=== PATIENT | female | born 1940 | race Caucasian/White ===

== ENCOUNTER 2018-07-04 02:50 | Inpatient (IN) ==
--- NOTE | 2018-06-20 08:27 | EKG Report ---
Test Performed on : 06/20/2018 08:19:52 AM Test Reason : JOINT CAMP Blood Pressure : / mmHG Vent. Rate : 080 BPM Atrial Rate : 080 BPM P-R Int : 202 ms QRS Dur : 084 ms QT Int : 374 ms P-R-T Axes : 050 -07 036 degrees QTc Int : 431 ms Normal sinus rhythm. Possible Left atrial enlargement Borderline ECG When compared with ECG of 29-APR-2007 08:28, [place] interval has decreased Confirmed by Betsy FARNSWORTH, Alton Tate ([id number]) on 06/21/2018 7:19:16 AM
[2018-06-20 08:30] LABS: URINE SOURCE CLEAN CATCH
[2018-06-20 08:49] LABS: BASO# 0.05 X1000 (0.0-0.2); BASO% 0.7 % (0.0-0.8); EOS# 0.08 X1000 (0.0-0.7); EOS% 1.1 % (0.0-10.0); HEMOGLOBIN 13.2 g/dL (12.0-16.0); LYMPH# 1.97 X1000 (1.2-3.4); LYMPH% 26.1 % (20.5-51.1); MCH 30.1 PG (27-31); MCHC 32.2 g/dL (33-37); MCV 93.6 FL (81-99); MONO% 9.3 % (1.7-9.3); MPV 10.3 FL (7.4-10.4); NEUT# 4.74 X1000 (1.4-6.5); NEUT% 62.8 % (42.2-75.2); PLT 375 X1000 (130-400); RBC 4.38 XMIL (4.2-5.4); RDW 13.6 % (11.5-14.5); WBC 7.54 X1000 (4.8-10.8)
[2018-06-20 08:51] LABS: BILIRUBIN URINE NEGATIVE (NEGATIVE); BLOOD URINE NEGATIVE (NEGATIVE); COLOR STRAW; GLUCOSE URINE NEGATIVE (NEGATIVE); KETONE URINE NEGATIVE (NEGATIVE); LEUKOCYTES URINE NEGATIVE (NEGATIVE); NITRITE URINE NEGATIVE (NEGATIVE); PH URINE 5.5; PROTEIN URINE NEGATIVE (NEGATIVE); TURBIDITY URINE CLEAR (CLEAR); UROBILINOGEN URINE NORMAL (NORMAL)
[2018-06-20 08:55] LABS: UR EPITHELIAL CELLS <10 /HPF (<10); URINE BACTERIA NEGATIVE /HPF; URINE RBC <10 /HPF (<10); URINE WBC <10 /HPF (<10)
[2018-06-20 09:06] LABS: INR 0.84; PROTIME 12.2 Seconds (11.0-16.0)
[2018-06-20 09:08] LABS: PTT 25.1 Seconds (22.3-41.8)
[2018-06-20 11:55] LABS: CALCIUM 10.1 mg/dL (8.8-10.2); CREATININE 1.1 mg/dL (0.5-0.9)
[2018-07-04] MEDS: NS 1,000 ML IV SCH ×2 (00:15→11:20)
[2018-07-04] MEDS ORDERED: REGLAN ONE (06:07)
[2018-07-04] MEDS ORDERED: COLACE ONE (06:07)
[2018-07-04] MEDS ORDERED: PEPCID ONE (06:07)
[2018-07-04] MEDS ORDERED: KEFZOL 1 GM/D5W 1 GM/50 ML IVPB ONE (06:08)
[2018-07-04] MEDS ORDERED: LR 1,000 ML ONE (06:08)
[2018-07-04] MEDS ORDERED: LYRICA ONE (06:08)
[2018-07-04] MEDS ORDERED: ROBINUL ONE (06:41)
[2018-07-04] MEDS ORDERED: XYLOCAINE-MPF 2% ONE (06:41)
[2018-07-04] MEDS ORDERED: DIPRIVAN 1% ONE (06:41)
[2018-07-04] MEDS ORDERED: QUELICIN (DOSE) ONE (06:41)
[2018-07-04] MEDS ORDERED: SODIUM CHLORIDE 0.9% ONE (06:42)
[2018-07-04] MEDS ORDERED: CYKLOKAPRON 1,000 MG/NS 1,000 MG/100 ML IVPB ONE (06:42)
[2018-07-04] MEDS ORDERED: DURAMORPH ONE (06:42)
[2018-07-04] MEDS ORDERED: MARCAINE 0.25% PF ONE (06:42)
[2018-07-04] MEDS ORDERED: TORADOL ONE (06:42)
[2018-07-04] MEDS ORDERED: NEOSPORIN G.U. IRRIGANT ONE (06:43)
[2018-07-04] MEDS ORDERED: EXPAREL 1.3% ONE (06:43)
[2018-07-04] MEDS ORDERED: ZEMURON ONE (07:04)
[2018-07-04] MEDS ORDERED: OFIRMEV 1000 MG/ISOTONIC SOLN 1,000 MG/100 ML BOTTLE ONE (07:20)
[2018-07-04] MEDS ORDERED: DECADRON ONE (07:20)
[2018-07-04] MEDS ORDERED: FENTANYL ONE (07:46)
[2018-07-04] MEDS ORDERED: ZOFRAN ONE (07:47)
[2018-07-04] MEDS ORDERED: NEO-SYNEPHRINE ONE (07:51)
[2018-07-04 07:57] LABS: URINE SOURCE CATH
[2018-07-04 08:00] LABS: BILIRUBIN URINE NEGATIVE (NEGATIVE); BLOOD URINE NEGATIVE (NEGATIVE); COLOR YELLOW; GLUCOSE URINE NEGATIVE (NEGATIVE); KETONE URINE 10 mg/dL (NEGATIVE); LEUKOCYTES URINE NEGATIVE (NEGATIVE); NITRITE URINE NEGATIVE (NEGATIVE); PH URINE 5.5; PROTEIN URINE NEGATIVE (NEGATIVE); SP GRAVITY URINE 1.012; TURBIDITY URINE CLEAR (CLEAR); UROBILINOGEN URINE NORMAL (NORMAL)
[2018-07-04 08:06] LABS: UR EPITHELIAL CELLS <10 /HPF (<10); URINE BACTERIA NEGATIVE /HPF; URINE RBC <10 /HPF (<10); URINE WBC <10 /HPF (<10); URINE YEAST PRESENT
--- NOTE | 2018-07-04 09:13 | OPERATIVE NOTE ---
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 POSTOPERATIVE DIAGNOSIS: Left posttraumatic glenohumeral arthritis with chronic rotator cuff tear. PROCEDURE PERFORMED: Left reverse total shoulder arthroplasty with DePuy Delta Xtend size 10 press-fit stem with a 38+ 6 humeral cup, 38 eccentric Glenosphere, and a standard Metaglene. SURGEON: Az Baxter M.D. LEASE ADMINISTRATION ANALYST: CLAYTON Armando. SECOND GREASE REFINING SUPERVISOR: Deangelo Mckeon RN. ANESTHESIA: General. IV FLUIDS: 1200 mL of lactated Ringer's. ESTIMATED BLOOD LOSS: 150 mL. COMPLICATIONS: None. INDICATION: A pleasant, 78-year-old female, who is status post fall a couple years ago and sustained a left proximal humeral fracture. Required open reduction internal fixation per Dr. Lazar. She has continued with some pain and discomfort, and did undergo removal of the hardware. On x-rays, she has developed some osteoarthritic changes, as well as was noted to have a chronic rotator cuff tear. Given the pain and discomfort and radiographic findings, recommendation to proceed with left reverse shoulder arthroplasty was offered. Risks and benefits of surgery were explained, including the risks of anesthesia, , bleeding, infection, failure to relieve pain, postoperative stiffness, nerve injury, blood clots, and other imponderables. All questions were answered. The patient and family wished to proceed with surgery. DESCRIPTION OF PROCEDURE: The patient was taken to the operating room and placed supine on the operating table. Once adequate anesthesia was obtained, the patient was placed in semi-Cross beach-chair position. The left shoulder was subsequently prepped and draped in the usual sterile fashion. A standard deltopectoral incision was made with a skin knife through the previous surgical incision. Hemostasis was obtained using electrocautery. Retractor was placed deep to the conjoined tendon. The subscapularis tendon was then identified and released from approximately 1 cm medial to its insertion site. The shoulder was then dislocated anteriorly. The patient did have significant irregularity on the humeral head. A starting reamer was then passed in the intramedullary canal. Sequential reamings up to a size 10. Intramedullary guide with proximal humeral cutting block was pinned in position. The humeral head was then resected. A protective disk was then placed. Attention was then turned to the glenoid. Circumferential dissection was performed with a deep knife. A guide was then placed in position. A guide pin was then placed. Reaming was then conducted. The central hole was then dilated. The wound was copiously irrigated with antibiotic pulsatile lavage. A standard Metaglene was then impacted in position. Two locking screws were placed and two nonlocking screws. The wound was copiously irrigated. A 38 eccentric Glenosphere was then placed with eccentricity, placed inferiorly. Attention was then turned to the humerus, where an intramedullary guide was placed in position. The proximal humerus was then reamed. Trial stem was then placed with a trial cup. A 42+ 6 humeral cup appeared to be the correct size. The trial cup was removed. The wound was copiously irrigated. A 38+ 6 humeral cup was then placed. The shoulder was reduced, carried through range of motion, had good range of motion and good stability. The wound was copiously irrigated. Then, #2 FiberWire was used to repair the subscapularis tendon. Exparel was placed in the deep soft tissue, as well as subcutaneous tissue. The wound was copiously irrigated once again with antibiotic pulsatile lavage. Then, 2-0 Vicryl was used to repair the subcutaneous tissue, and a running 2-0 Prolene. Benzoin and Steri-Strips were applied. Adaptic, sterile 4x4, ABD pad, and tape to the left shoulder, followed by shoulder immobilizer. All counts were correct. The patient tolerated the procedure well, and was transferred to the recovery room in stable condition. cc: Az Baxter MD
[2018-07-04] MEDS ORDERED: NS 1,000 ML ONE (09:30)
[2018-07-04] MEDS: MORPHINE ONE ×2 (09:30→09:45)
--- NOTE | 2018-07-04 09:40 | Diag Imaging Result Doc PS360 ---
EXAM: SHOULDER 1 VIEW LEFT 07/04/2018 HISTORY: post op total shoulder TECHNIQUE: Left shoulder AP COMMENT: There is no evidence of acute fracture or dislocation. There is a total shoulder arthroplasty. IMPRESSION: Postsurgical change. Electronically signed by Dannie Gaspar 07/04/2018 9:38 AM
[2018-07-04] MEDS ORDERED: OXY IR PO PRN (10:00)
[2018-07-04] MEDS ORDERED: MORPHINE IV PRN ×2 (10:00)
[2018-07-04] MEDS ORDERED: DILAUDID ONE (10:03)
[2018-07-04] MEDS: OXY IR PO PRN ×4 (11:20→23:58)
[2018-07-04] MEDS: KEFZOL 1 GM/D5W 1 GM/50 ML IVPB IV SCH ×2 (13:12→22:18)
[2018-07-04] MEDS ORDERED: CYKLOKAPRON 1,000 MG in NS 100 ML IV ONE (13:15)
[2018-07-04] MEDS: TYLENOL PO SCH ×2 (14:19→19:59)
[2018-07-04] MEDS: ZOFRAN PO PRN ×2 (14:28→20:04)
[2018-07-04] MEDS: MORPHINE IV PRN (17:03)
[2018-07-04] MEDS: PERIDEX MT SCH (20:00)
[2018-07-04] MEDS: COLACE PO SCH (20:00)
[2018-07-05] MEDS: OXY IR PO PRN (03:06)
[2018-07-05] MEDS: TYLENOL PO SCH ×2 (03:06→08:58)
[2018-07-05] MEDS: MORPHINE IV PRN (05:09)
[2018-07-05 05:57] LABS: HEMATOCRIT 32.8 % (37.0-47.0); HEMOGLOBIN 10.4 g/dL (12.0-16.0)
[2018-07-05 06:16] LABS: AGAP 9; BUN 12 mg/dL (8-22); CALCIUM 8.7 mg/dL (8.8-10.2); CHLORIDE 107 mmol/L (98-107); COSMO 281; CREATININE 0.8 mg/dL (0.5-0.9); ESTIMATED GFR > 60; GLUCOSE 100 mg/dL (70-104); SODIUM 141 mmol/L (136-145); TCO2 25 mmol/L (25-35)
--- NOTE | 2018-07-05 06:29 | PROGRESS NOTE ---
DATE: 07/05/2018 SUBJECTIVE: The patient is a pleasant 78-year-old female who is 1 day status post left reverse total shoulder arthroplasty. She is currently resting comfortably. OBJECTIVE: On physical exam, patient's left upper extremity, her wound looks good. There are no signs or symptoms of infection. She is neurovascularly distally. Able to flex and extend all of her fingers. Her hemoglobin is 10.4 and hematocrit is 32.8. IMPRESSION: Postop day #1 status post left reverse shoulder arthroplasty. PLAN: At this point, we will plan on discharging home later today. We will arrange for home physical therapy. Patient will follow up in the office 07/17/2018. cc: Az Baxter MD
[2018-07-05] MEDS: COLACE PO SCH (08:58)
[2018-07-05] MEDS: PERIDEX MT SCH (08:59)
[2018-07-05] MEDS: ZOFRAN PO PRN (10:18)
[2018-07-05 11:31] VITALS: BP 107/57
== END 2018-07-05 11:28 | disposition home health service (06) | DRG 483 ==
LOC: SURHOLD 02:50 → 4N 08:32
PROVIDERS: ADMIT Orthopaedic Surgery Adult Reconstructive Orthopaedic Surgery; ATTEND Orthopaedic Surgery Adult Reconstructive Orthopaedic Surgery
CPT/HCPCS: 73020; 80048; 81001; 85014; 85018; 85025; 85610; 85730; 86850; 86900; 86901; 88305; 88311; 93005; 93010; 94761; 94799; 97162; 97530; A9270; C1713; C9290; J0131; J0330; J0690; J1100; J1170; J1885; J2270; J2274; J2275; J2370; J2405; J3010; J7030; J7120; Q9974; S0020